=== PATIENT | female | born 2000 | race Caucasian/White ===

== ENCOUNTER 2021-01-19 02:11 | Outpatient (CLI) | payer MEDICAID ==
[~2021-01-19] VITALS: Ht 157.5 cm; Wt 86.5 kg
[2021-01-19 02:34] VITALS: BP 120/62
[2021-01-19 02:46] LABS: BILIRUBIN,URINE NEGATIVE (NEGATIVE); CLARITY,URINE SL CLOUDY; COLOR,URINE YELLOW; GLUCOSE, URINE (UA) NEGATIVE (NEGATIVE); KETONES,URINE 2+ (NEGATIVE); LEUKOCYTE ESTERASE ,URINE 1+ (NEGATIVE); NITRITE,URINE NEGATIVE (NEGATIVE); PROTEIN,URINE NEGATIVE (NEGATIVE)
[2021-01-19 02:59] LABS: BACTERIA,URINE FEW /HPF; RBC,URINE 0-2 /HPF
[2021-01-19 03:06] VITALS: BP 106/60
[2021-01-19] MEDS ORDERED: LORA10TA7 PO (03:17)
[2021-01-19] MEDS ORDERED: PREN-142 PO (03:17)
[2021-01-19] MEDS ORDERED: CEPH500T PO (03:19)
--- NOTE | 2021-01-20 08:42 | Physician Query-Final Dx ---
Clinic Account Progress/Dx Physician Query: Please give diagnosis Please include # weeks gestation Date of Service Jan 19, 2021 at 02:11 RUBINA SMITH Jan 20, 2021 08:42
== END 2021-01-19 03:30 | disposition home or self-care (01) ==
LOC: WSo 02:11 → LDRP 02:12 → WSo 03:30
PROVIDERS: ATTEND Family Medicine
DX: O29.43 Spinal and epidural anesthesia induced headache during pregnancy, third trimester (principal); Z3A.30 30 weeks gestation of pregnancy
CPT/HCPCS: 81000; 87088; 99213